=== PATIENT | male | born 1950 | race Caucasian/White ===

== ENCOUNTER → 2021-12-24 09:35 | Outpatient (CLI) | payer MEDICARE, OTHER, SELFPAY ==
--- NOTE | 2021-12-24 | DI.MRI.S_ITS ---
PROCEDURE: MR LUMBAR SPINE WO CON INDICATIONS: Foot drop, right foot TECHNIQUE: Noncontrast sagittal T1 spin echo and T2 fast echo, coronal T2, sagittal STIR, and T2 fast spin echo through the lumbar spine COMPARISON: None. FINDINGS: Image quality: Excellent. Alignment and Curvature: No plain films are available for comparison, for numbering purposes. Thus, for the purposes of this examination, 5 lumbar type vertebral bodies will be presumed, as denoted on the montage panel. This should be confirmed and correlated with plain films, prior to any lumbar spinal intervention. There is mild leftward curvature of the lower lumbar spine. There is loss of normal lumbar lordosis. 2 mm of retrolisthesis of L1 on L2, L2 on L3, and L3 on L4. Bone Marrow: Marrow is of normal overall signal. No acute vertebral body compression fractures. Moderate reactive signal within the endplates adjacent to the L4-L5 and L5-S1 intervertebral discs. Mild reactive signal adjacent to the remaining lumbar and lower thoracic intervertebral discs. Spinal Cord: Conus medullaris terminates at the mid L1 level. Visualized cord demonstrates normal signal and size. Paraspinous Soft Tissues: No paravertebral masses. T12-L1: Mild disc height loss and desiccation. Mild diffuse disc bulge. Mild facet and ligamentum flavum hypertrophy. Mild canal stenosis. Mild bilateral foraminal stenosis. L1-L2: Mild disc height loss. Moderate disc desiccation. Mild diffuse disc bulge. Mild facet and ligamentum flavum hypertrophy. Mild epidural lipomatosis. Mild canal stenosis. Mild left greater than right foraminal stenosis. L2-L3: Severe disc height loss and desiccation. Mild diffuse disc bulge. Mild facet and ligamentum flavum hypertrophy. Mild canal stenosis. Mild right and moderate left foraminal stenosis. L3-L4: Mild disc height loss. Moderate disc desiccation. Moderate diffuse disc bulge. Moderate facet and ligamentum flavum hypertrophy. Mild epidural lipomatosis. Moderate canal stenosis. Moderate right greater than left foraminal stenosis. Right lateral recess stenosis associated with posterior deviation and compression of the right L4 nerve root within the lateral recess. L4-L5: Severe disc height loss and desiccation. Mild diffuse disc bulge/osteophyte. Mild facet and ligamentum flavum hypertrophy. Mild canal stenosis. Moderate right greater than left foraminal stenosis. Right lateral recess stenosis with possible right L5 nerve root compression. L5-S1: Severe disc height loss and desiccation. Moderate diffuse disc bulge/osteophyte. Moderate bilateral facet hypertrophy. Mild canal stenosis. Moderate to severe left greater than right foraminal stenosis with left greater than right L5 nerve root compression. IMPRESSION: 1. Multilevel degenerative disc and facet disease, as well as ligamentum flavum hypertrophy and epidural lipomatosis. 2. Multilevel canal stenoses, worst at L3-L4, where there is moderate canal stenosis. 3. Multilevel foraminal stenoses, worst at L5-S1 where there is associated intraforaminal nerve root compression. 4. Right lateral recess stenosis at L3-L4 and L4-L5 associated with L4 and L5 nerve root compression as described above. 5. Recommend correlation with clinical symptoms to ascertain relevance of these findings. 6. 5 lumbar type vertebral bodies were presumed for the current report. Plain films of the lumbar spine are recommended for confirmation, prior to any lumbar spinal intervention. Dictated by: Mando Davila M.D. on 12/24/2021 at 11:14 Approved by: Mando Davila M.D. on 12/24/2021 at 11:20
== END ==
PROVIDERS: PCP Student in an Organized Health Care Education/Training Program; Referring Provider Student in an Organized Health Care Education/Training Program; Visit Provider Student in an Organized Health Care Education/Training Program
DX: M51.37 Other intervertebral disc degeneration, lumbosacral region (principal); M51.36 Other intervertebral disc degeneration, lumbar region; M48.061 Spinal stenosis, lumbar region without neurogenic claudication; M48.07 Spinal stenosis, lumbosacral region; M21.371 Foot drop, right foot; R20.0 Anesthesia of skin
CPT/HCPCS: 72148

== ENCOUNTER → 2022-07-22 12:45 | Outpatient (CLI) | payer MEDICARE, OTHER, SELFPAY ==
--- NOTE | 2022-07-22 | DI.MRI.S_ITS ---
PROCEDURE: MR CERVICAL SPINE WO CON INDICATIONS: Foot drop, right foot/Cervicalgia TECHNIQUE: Noncontrast sagittal T1 spin echo and T2 fast spin echo, sagittal STIR, foraminal oblique sagittal T2 fast spin echo, and axial gradient echo or T2 fast spin echo through the cervical spine. COMPARISON: None. FINDINGS: Image quality: Excellent. Alignment and Curvature: There is normal bony alignment. Bone Marrow: Marrow demonstrates normal overall signal. Spinal Cord: Visualized spinal cord has normal size and signal. No cerebellar tonsillar herniation. Paraspinous Soft Tissues: No paravertebral masses. Prevertebral soft tissues are normal in thickness. C2-C3: Normal appearance. C3-C4: Mild disc desiccation and height loss. Broad-based disc bulge. Effacement of the anterior CSF space. No canal stenosis. Moderate bilateral foraminal stenosis. C4-C5: Moderate disc desiccation and height loss. Broad-based disc bulge. Effacement of the anterior CSF space. Moderate canal stenosis. Severe bilateral foraminal stenosis. C5-C6: Moderate disc desiccation and height loss. Broad-based disc bulge. Effacement of the anterior CSF space. There is deformity of the anterior aspect of the cord. No cord signal abnormality. Moderate canal stenosis. Moderate right and severe left foraminal narrowing. C6-C7: Moderate disc desiccation and height loss. Broad-based disc bulge. Effacement of the anterior CSF space. Mild canal stenosis. Moderate right and severe left foraminal narrowing. C7-T1: Normal appearance. IMPRESSION: 1. Multilevel mild to moderate disc desiccation and height loss and posterior disc bulges with resultant moderate canal stenosis at C4-5 and C5-6 and mild canal stenosis at C6-7. 2. Mild deformity of the anterior aspect of the cord is present at C5-6 without cord signal abnormality. 3. Moderate bilateral foraminal narrowing at C3-4, moderate right foraminal narrowing at C5-6 and C6-7. 4. Severe bilateral foraminal narrowing at C4-5, and severe left foraminal narrowing at C5-6 and C6-7. Dictated by: Nikki Mills M.D. on 07/22/2022 at 16:07 Approved by: Nikki Mills M.D. on 07/22/2022 at 16:12
--- NOTE | 2022-07-22 | DI.MRI.S_ITS ---
PROCEDURE: MR HEAD/BRAIN WO/W CON INDICATIONS: Foot drop, right foot/Cervicalgia TECHNIQUE: Noncontrast axial T1 spin echo, axial T2 fast spin echo, sagittal and axial FLAIR, coronal T2 fast spin echo, axial gradient echo, axial diffusion and ADC through the brain. After the administration of contrast, axial and coronal and sagittal 3D VIBE or T1 spin echo with fat saturation through the brain. COMPARISON: None. FINDINGS: Image quality: Excellent. CSF Spaces: Generalized ventriculomegaly out of proportion to sulcal widening. Brain: No intracranial masses or hemorrhage. Tam/white matter interface is normal. Brainstem appears normal. Diffusion-weighted sequence is unremarkable without evidence of acute infarct. Normal intravascular flow voids are present. Atrophy without chronic ischemic change noted. Skull and face: Calvarial marrow is normal in signal. Orbits appear normal. Sinuses: Sinuses and mastoids appear clear. IMPRESSION: Moderate ventriculomegaly out of proportion to degree of cerebral atrophy. Differential would include centralized atrophy and normal pressure hydrocephalus. If clinically relevant, consider additional confirmatory testing. No acute intracranial hemorrhage, infarct or mass lesion Approved by: Zeyad Reddy M.D. on 07/22/2022 at 18:34
== END ==
PROVIDERS: PCP Student in an Organized Health Care Education/Training Program; Referring Provider Student in an Organized Health Care Education/Training Program; Visit Provider Student in an Organized Health Care Education/Training Program
DX: G93.89 Other specified disorders of brain (principal); M50.31 Other cervical disc degeneration, high cervical region; M48.02 Spinal stenosis, cervical region; M21.371 Foot drop, right foot
CPT/HCPCS: 70553; 72141; A9579